=== PATIENT | female | born 1970 | race American Indian/Alaskan Native ===

== ENCOUNTER 2018-08-14 01:00 | Emergency (ER) | payer MEDICAID ==
[2018-08-14 01:18] VITALS: BMI 21.7
[2018-08-14 02:58] LABS: BASO # 0.1 K/uL (0.0-0.2); BASO % 0.9 % (0.0-2.0); EOS # 0.3 K/uL (0.0-0.7); EOS % 5.3 % (0.0-4.0); HEMOGLOBIN 14.3 g/dL (11.0-16.0); LYMPH # 2.1 K/uL (1.0-4.3); LYMPH % 38.8 % (20.0-40.0); MEAN CELL VOLUME 94.6 fL (81.0-99.0); MEAN CORPUSCULAR HEMOGLOBIN 31.2 pg (27.0-31.0); MEAN PLATELET VOLUME 8.7 fL (7.2-11.7); MONO # 0.4 K/uL (0.0-0.8); MONO % 7.4 % (0.0-10.0); NEUT # 2.6 K/uL (1.8-7.0); NEUT % 47.6 % (50.0-75.0); NRBC % 0.1 % (0.0-2.0); RBC 4.58 Mil/uL (3.80-5.20); RED CELL DISTRIBUTION WIDTH 15.4 % (11.5-14.5); WHITE BLOOD COUNT 5.5 K/uL (4.8-10.8)
[2018-08-14 03:11] LABS: ALB/GLOB RATIO 1.3 (1.0-2.1); ALBUMIN 4.2 g/dL (3.5-5.0); ALT/SGPT 19 U/L (9-52); AST/SGOT 27 U/L (14-36); BLOOD UREA NITROGEN 13 mg/dL (7-17); CALCIUM 11.5 mg/dl (8.6-10.4); GFR NON-AFRICAN AMERICAN > 60
--- NOTE | 2018-08-14 03:29 | C.PDOC ---
History Of Present Illness 48 year old female with PMHx of fibroids presents to the ED c/o right sided lower back and hip pain. Patient reports 2-3 weeks ago she fell in some snow and landed on her left side. Patient states she felt initially fine, left side not hurting anymore. Patient also c/o non specific lower abdominal pain, reports she was told she had some fibroids that needed removal but has not followed up. Patient states she has been taking Motrin occasionally not routinely. Patient denies fever, chills, nausea, vomit, diarrhea, dysuria, rash, weakness, numbness. - HPI Time Seen by Provider: 08/14/18 02:09 Chief Complaint (Nursing): Trauma History Per: Patient History/Exam Limitations: no limitations Onset/Duration Of Symptoms: Days Injury Occurred (Timing): Days Ago: (2-3 weeks) Location Of Injury: Right: Back, Hip Recent travel outside of the [place]: No Additional History Per: Patient - Fall Fall:Prior To Injury: Slipped Past Medical History Reviewed: Historical Data, Nursing Documentation, Vital Signs Vital Signs: Last Vital Signs Temp 97.7 F 08/14/18 01:18 Pulse 80 08/14/18 01:18 Resp 18 08/14/18 01:18 BP 109/72 08/14/18 01:18 Pulse Ox 98 08/14/18 01:18 - Medical History PMH: Anemia Denies: Chronic Kidney Disease Surgical History: No Surg Hx - [facility] Procedures TRANSFUSE NONAUT RED BLOOD CELLS IN PERIPH VEIN, PERC (07/30/16) Family History: States: Unknown Family Hx - Social History Hx Alcohol Use: No Hx Substance Use: No - Immunization History Hx Tetanus Toxoid Vaccination: Yes Hx Influenza Vaccination: No Hx Pneumococcal Vaccination: No Review Of Systems Constitutional: Negative for: Fever, Chills, Weakness Eyes: Negative for: Redness, Other (scleral icterus) ENT: Negative for: Mouth Swelling Cardiovascular: Negative for: Chest Pain Respiratory: Negative for: Cough, Shortness of Breath Gastrointestinal: Positive for: Abdominal Pain. Negative for: Nausea, Vomiting, Diarrhea Genitourinary: Negative for: Dysuria, Hematuria Musculoskeletal: Positive for: Back Pain, Other (Hip pain) Skin: Negative for: Rash Neurological: Negative for: Weakness, Numbness, Dizziness Physical Exam - Physical Exam Appears: Well, Non-toxic, No Acute Distress Skin: Normal Color, Warm, No Rash Head: Atraumatic, Normacephalic Eye(s): bilateral: Normal Inspection (no scleral icterus), PERRL, EOMI Ear(s): Bilateral: Normal (no drainage) Nose: Normal Oral Mucosa: Moist Throat: Normal, No Erythema, No Exudate, Other (no injection, swelling. Airway patent) Chest: Symmetrical Respiratory: No Accessory Muscle Use, Other (normal inspiratory effort) Gastrointestinal/Abdominal: Soft, Tenderness (lower abdominal ), No Guarding Back: Straight Leg Raising ((+) right leg), Other (Right side lower back tenderness to palpation) Extremity: No Pedal Edema, Capillary Refill (< 2 seconds) Extremity: Bilateral: Atraumatic, Normal ROM Pulses: Left Dorsalis Pedis: Normal, Right Dorsalis Pedis: Normal Neurological/Psych: Oriented x3, Normal Speech, Other (cranial nerves grossly intact) Gait: Steady ED Course And Treatment - Laboratory Results Result Diagrams: 08/14/18 02:54 08/14/18 02:54 Lab Results: Total Bilirubin 0.7 mg/dL (0.2-1.3) 08/14/18 02:54 AST 27 U/L (14-36) 08/14/18 02:54 ALT 19 U/L (9-52) 08/14/18 02:54 Alkaline Phosphatase 93 U/L (38-126) 08/14/18 02:54 Total Protein 7.5 g/dL (6.3-8.3) 08/14/18 02:54 Albumin 4.2 g/dL (3.5-5.0) 08/14/18 02:54 Globulin 3.3 gm/dL (2.2-3.9) 08/14/18 02:54 Albumin/Globulin Ratio 1.3 (1.0-2.1) 08/14/18 02:54 O2 Sat by Pulse Oximetry: 98 (ON RA) Pulse Ox Interpretation: Normal - CT Scan/US CT abd/pelvis Other Rad Studies (CT/US): Read By Radiologist, Radiology Report Reviewed CT/US Interpretation: CT SCAN OF THE ABDOMEN AND PELVIS WITHOUT ORAL OR IV CONTR AST. CLINICAL INDICATION: Fall. TECHNIQUE: Axial and reformatted sagittal and coronal images of the abdomen pelvis obtained without IV contrast administration. COMPARISON: None. FINDINGS: Uncomplicated colonic diverticulosis with moderate amount of fecal residue in the large bowel. The visualized lung bases are unremarkable. Normal unenhanced liver. Normal gallbladder and extrahepatic biliary system. Normal unenhanced spleen. Normal pancreas. . Normal bilateral adrenal glands. Normal size of the right kidney. There is no right renal mass. There are no right renal calculi. There is no right hydronephrosis. Normal visualized right ureter. Normal size of the left kidney. There is no left renal mass. There are no left renal calculi. There is no left hydronephrosis. Normal visualized left ureter. Normal visualized stomach. Normal small intestine. Normal colon. The appendix is visualized and appears normal. There is no demonstrated peritoneal fluid. Normal abdominal aorta. Normal inferior vena cava. Normal retroperitoneum. . Normal urinary bladder. There is no pelvic mass lesion or lymphadenopathy. There is no pelvic fluid. . Normal abdominal wall. Normal osseous structures. IMPRESSION: Constipation. No significant acute traumatic pathology. . Electronically signed on Aug 14, 2018 5:02:08 AM EDT by: Katia Hadley M.D., Certified by KHADIJAH, MSK, Neuroradiology. Medical Decision Making Medical Decision Making: Plan: * CT abd/pelvis * Labs * Toradol 15 mg IM * Tramadol 50 mg PO * UA patient has been ambulatory while in ED, she declined any stronger pain medication after asking for more pain medication. she appears to be in no distress and stable for outpatient management. Disposition Counseled Patient/Family Regarding: Studies Performed, Diagnosis, Need For Followup, Rx Given - Disposition Referrals: [place] III, MD [Staff Provider] - Disposition: HOME/ ROUTINE Disposition Time: 05:09 Condition: STABLE Prescriptions: Ibuprofen [Motrin Tab] 800 mg PO TID PRN #21 tab PRN Reason: Pain, Moderate (4-7) traMADol [Ultram] 50 mg PO TID PRN #15 tab PRN Reason: Pain, Severe (8-10) Instructions: Constipation, Adult (DC), Low Back Pain (DC) Forms: General Discharge Instructions, [facility] (Martiniquais), Work Excuse - Clinical Impression Clinical Impression: Low back pain, Constipation - PA / KELP GATHERER / Resident Statement MD/DO has reviewed & agrees with the documentation as recorded. - Scribe Statement The provider has reviewed the documentation as recorded by the Anupama Lora All medical record entries made by the Anupama were at my direction and personally dictated by me. I have reviewed the chart and agree that the record accurately reflects my personal performance of the history, physical exam, medical decision making, and the department course for this patient. I have also personally directed, reviewed, and agree with the discharge instructions and disposition.
[2018-08-14 03:44] LABS: SQUAMOUS EPITHIAL 1 /hpf (0-5); URINE AMORPHOUS SEDIMENT RARE /ul (<OCC); URINE BILIRUBIN NEGATIVE (NEGATIVE); URINE BLOOD NEGATIVE (NEGATIVE); URINE CLARITY Hazy (Clear); URINE COLOR Yellow (YELLOW); URINE GLUCOSE (UA) NORMAL (Normal); URINE LEUKOCYTE ESTERASE TRACE Leu/uL (Negative); URINE PROTEIN NEGATIVE (NEGATIVE)
[2018-08-14] MEDS ORDERED: Hydrocodone/Acetaminophen 5 mg /300 mg Tab PO STA (03:53)
[2018-08-14 05:30] VITALS: BP 109/74; PULSE 65; RESP 16; TEMP 98
--- NOTE | 2018-08-14 11:17 | CT ---
PROCEDURE: CT Abdomen and Pelvis without Oral or IV contrast. HISTORY: back/abd pain COMPARISON: Abdominal ultrasound 07/30/16, pelvic ultrasound performed 08/03/17 TECHNIQUE: Contiguous axial images of the abdomen and pelvis. No oral or IV contrast administered. Coronal and Sagittal reformats generated and reviewed. Radiation dose: Total exam DLP = 231.95 mGy-cm. This CT exam was performed using one or more of the following dose reduction techniques: Automated exposure control, adjustment of the mA and/or kV according to patient size, and/or use of iterative reconstruction technique. FINDINGS: There is limited evaluation of the solid organs without the administration of IV contrast. LOWER THORAX: No visible consolidation, pleural effusion, or pneumothorax. LIVER: Unremarkable unenhanced appearance. GALLBLADDER AND BILE DUCTS: Unremarkable unenhanced appearance. PANCREAS: Unremarkable unenhanced appearance. SPLEEN: Unremarkable unenhanced appearance. ADRENALS: Unremarkable unenhanced appearance. KIDNEYS AND URETERS: No hydronephrosis or obstructing renal calculus. BLADDER: The urinary bladder appears unremarkable. REPRODUCTIVE: Uterus is present. APPENDIX: The presumed appendix appears within normal limits of caliber. No secondary signs of acute appendicitis. BOWEL: The stomach is nondistended. Lack of oral contrast limits evaluation for bowel pathology. The bowel loops appear within normal limits of caliber without evidence of intestinal obstruction. Moderate diffuse constipation. PERITONEUM: No significant free fluid. No definite free air. LYMPH NODES: No bulky lymphadenopathy identified. VASCULATURE: No aortic aneurysm. BONES: No acute osseous abnormality is detected. OTHER FINDINGS: None. IMPRESSION: Moderate diffuse constipation. Preliminary impression was provided by [facility].
[2018-08-17 05:41] VITALS: O2SAT 98
== END 2018-08-14 05:30 | disposition home or self-care (01) ==
LOC: C.ER 01:00
DX: M54.5 Low back pain (principal); K59.00 Constipation, unspecified; D64.9 Anemia, unspecified
CPT/HCPCS: 74176; 80053; 81001; 81025; 85025; 96374; 99285; J1885